=== PATIENT | male | born 1970 | race Caucasian/White ===

== ENCOUNTER 2020-05-25 20:47 | Emergency (ER) | payer MEDICAID ==
[~2020-05-25] VITALS: Ht 170.2 cm; Wt 77.1 kg
[2020-05-25 20:58] VITALS: Ht 170.2 cm; Wt 77.1 kg
[2020-05-25 23:40] VITALS: BP 144/92
== END 2020-05-25 23:41 | disposition home or self-care (01) ==
LOC: ED 20:47
DX: T78.40XA Allergy, unspecified, initial encounter (principal); I10 Essential (primary) hypertension; Z90.89 Acquired absence of other organs; X58.XXXA Exposure to other specified factors, initial encounter
CPT/HCPCS: J0171; J1200; J2930; J3490; J7030